=== PATIENT | female | born 1990 | race Caucasian/White ===

== ENCOUNTER 2018-06-28 02:54 | Emergency (ER) | payer OTHER ==
[2018-06-28] MEDS: SOD CHLORIDE 0.9% 1,000 ML IV (07:13)
[2018-06-28] MEDS: LIDOCAINE/MYLANTA 40 ML BTL PO (07:13)
[2018-06-28] MEDS: FAMOTIDINE 20 MG TAB PO (07:13)
[2018-06-28] MEDS: METOCLOPRAMIDE 10 MG INJ IV (07:13)
[2018-06-28 07:40] LABS: ADD MAN DIFF? NO
[2018-06-28 07:44] LABS: WHITE BLOOD COUNT 9.4 10^3/ul (4.8-10.8)
[2018-06-28 07:44] LABS: BASOPHILS % 0.2 % (0.0-2.0); EOSINOPHILS # 0.2 10^3/ul (0.0-0.5); EOSINOPHILS % 1.6 % (0.0-7.0); HEMOGLOBIN 12.5 g/dl (12.0-16.0); LYMPHOCYTES # 2.2 10^3/ul (0.8-2.9); LYMPHOCYTES % 23.6 % (15.0-51.0); MEAN CORPUSCULAR HGB CONC 32.9 g/dl (32.0-37.0); MEAN CORPUSCULAR VOLUME 85.2 fl (82.0-101.0); MEAN PLATELET VOLUME 9.6 fl (7.4-10.4); MONOCYTE # 0.5 10^3/ul (0.3-0.9); MONOCYTES % 4.9 % (0.0-11.0); NEUTROPHIL # 6.5 10^3/ul (1.6-7.5); NEUTROPHILS % 69.4 % (39.0-77.0); PLATELET COUNT 231 10^3/UL (140-415); RED BLOOD COUNT 4.46 10^6/ul (4.20-5.40); RED CELL DISTRIBUTION WIDTH 13.5 % (11.5-14.5)
[2018-06-28 08:02] LABS: ALANINE AMINOTRANSFERASE 24 IU/L (13-69); ALBUMIN 4.3 g/dl (3.3-4.9); ALBUMIN/GLOBULIN RATIO 1.19; ALKALINE PHOSPHATASE 62 IU/L (42-121); ANION GAP 17 (8-16); ASPARTATE AMINO TRANSFERASE 23 IU/L (15-46); BILIRUBIN,INDIRECT 0.1 mg/dl (0-1.1); BILIRUBIN,TOTAL 0.1 mg/dl (0.2-1.3); BLOOD UREA NITROGEN 7 mg/dl (7-20); CALCIUM 9.5 mg/dl (8.4-10.2); CARBON DIOXIDE 25 mmol/L (21-31); CHLORIDE 105 mmol/L (97-110); CREATININE 0.44 mg/dl (0.44-1.00); GLUCOSE 89 mg/dl (70-220); LIPASE 39 U/L (23-300); POTASSIUM 3.7 mmol/L (3.5-5.1); SODIUM 143 mmol/L (135-144); TOTAL PROTEIN 7.9 g/dl (6.1-8.1)
[2018-06-28 08:07] LABS: INR 0.95; PROTIME 12.8 Sec (11.9-14.9)
[2018-06-28 08:08] LABS: PARTIAL THROMBOPLASTIN TIME 27.7 Sec (25.0-35.0)
[2018-06-28 08:25] LABS: ADD UMIC YES; UR ASCORBIC ACID NEGATIVE (NEGATIVE); UR BACTERIA FEW /HPF (NONE SEEN); UR BILIRUBIN (Dip) NEGATIVE (NEGATIVE); UR BLOOD (Dip) 1+ mg/dL (NEGATIVE); UR CLARITY CLOUDY (CLEAR); UR COLOR AMBER (YELLOW); UR GLUCOSE (Dip) NEGATIVE (NEGATIVE); UR KETONES (Dip) NEGATIVE (NEGATIVE); UR LEUKOCYTE ESTERASE (Dip) 3+ Leu/ul (NEGATIVE); UR MUCUS MANY /HPF (NONE SEEN); UR NITRITE (Dip) NEGATIVE (NEGATIVE); UR RBC 33 /HPF (0-5); UR SQUAMOUS EPITHELIAL CELL MANY /HPF (FEW); UR TOTAL PROTEIN (Dip) 1+ mg/dl (NEGATIVE); UR UROBILINOGEN (Dip) NEGATIVE (NEGATIVE); UR WBC > 182 /HPF (0-5)
== END 2018-06-28 09:04 | disposition home or self-care (01) ==
LOC: FTE 02:54
DX: O23.41 Unspecified infection of urinary tract in pregnancy, first trimester (principal); R10.2 Pelvic and perineal pain; Z3A.12 12 weeks gestation of pregnancy
CPT/HCPCS: 76705; 76801; 80053; 81001; 83690; 84702; 85025; 85610; 85730; 86900; 86901; 96361; 96374; 99285-25

== ENCOUNTER 2018-10-18 18:17 | Outpatient (CLI) | payer OTHER ==
[2018-10-18 19:48] LABS: ADD UMIC YES; UR ASCORBIC ACID NEGATIVE (NEGATIVE); UR BILIRUBIN (Dip) NEGATIVE (NEGATIVE); UR BLOOD (Dip) NEGATIVE (NEGATIVE); UR CLARITY CLOUDY (CLEAR); UR COLOR YELLOW (YELLOW); UR GLUCOSE (Dip) NEGATIVE (NEGATIVE); UR KETONES (Dip) NEGATIVE (NEGATIVE); UR LEUKOCYTE ESTERASE (Dip) NEGATIVE Leu/ul (NEGATIVE); UR NITRITE (Dip) NEGATIVE (NEGATIVE); UR RBC 1 /HPF (0-5); UR SPECIFIC GRAVITY (Dip) 1.016 (1.003-1.030); UR SQUAMOUS EPITHELIAL CELL FEW /HPF (FEW); UR TOTAL PROTEIN (Dip) NEGATIVE (NEGATIVE); UR UROBILINOGEN (Dip) NEGATIVE (NEGATIVE); UR WBC 0 /HPF (0-5)
[2018-10-18] MEDS: ACETAMINOPHEN 325 MG TAB PO (20:46)
== END 2018-10-18 22:22 | disposition home or self-care (01) ==
LOC: OBT 18:17 → L-D 18:18 → OBT 22:22
DX: O26.893 Other specified pregnancy related conditions, third trimester (principal); Z3A.28 28 weeks gestation of pregnancy
CPT/HCPCS: 76815; 81001

== ENCOUNTER 2018-11-26 13:33 | Outpatient (CLI) | payer OTHER ==
[2018-11-26] MEDS: LIDOCAINE/MYLANTA 40 ML BTL PO (14:37)
== END 2018-11-26 15:44 | disposition home or self-care (01) ==
LOC: OBT 13:33 → L-D 13:33 → OBT 15:44
DX: O26.893 Other specified pregnancy related conditions, third trimester (principal); Z3A.28 28 weeks gestation of pregnancy; R10.2 Pelvic and perineal pain
CPT/HCPCS: 76818

== ENCOUNTER 2018-12-30 00:10 | Outpatient (CLI) | payer OTHER ==
[2018-12-30 01:13] LABS: ADD UMIC NO; UR ASCORBIC ACID NEGATIVE (NEGATIVE); UR BACTERIA FEW /HPF (NONE SEEN); UR BILIRUBIN (Dip) NEGATIVE (NEGATIVE); UR BLOOD (Dip) NEGATIVE (NEGATIVE); UR CLARITY SLIGHTLY CLOUDY (CLEAR); UR COLOR YELLOW (YELLOW); UR GLUCOSE (Dip) NEGATIVE (NEGATIVE); UR KETONES (Dip) NEGATIVE (NEGATIVE); UR LEUKOCYTE ESTERASE (Dip) NEGATIVE Leu/ul (NEGATIVE); UR MUCUS FEW /HPF (NONE SEEN); UR NITRITE (Dip) NEGATIVE (NEGATIVE); UR RBC 0 /HPF (0-5); UR SPECIFIC GRAVITY (Dip) 1.009 (1.003-1.030); UR SQUAMOUS EPITHELIAL CELL FEW /HPF (FEW); UR TOTAL PROTEIN (Dip) NEGATIVE (NEGATIVE); UR UROBILINOGEN (Dip) NEGATIVE (NEGATIVE); UR WBC 2 /HPF (0-5)
[2018-12-30] MEDS: ACETAMINOPHEN 500 MG TAB PO (01:34)
== END 2018-12-30 02:15 | disposition home or self-care (01) ==
LOC: OBT 00:10 → L-D 00:10 → OBT 02:15
DX: O26.893 Other specified pregnancy related conditions, third trimester (principal); R10.2 Pelvic and perineal pain; Z3A.39 39 weeks gestation of pregnancy
CPT/HCPCS: 76818; 81001; 81003; 87086

== ENCOUNTER 2018-12-31 05:10 | Inpatient (IN) | payer OTHER ==
[2018-12-31] MEDS ORDERED: OXYTOCIN 30 UNITS/LR 500 ML IV ×3 (05:30→10:00)
[2018-12-31] MEDS ORDERED: CARBOPROST 250 MCG INJ IM ×2 (05:30→10:00)
[2018-12-31] MEDS ORDERED: MISOPROSTOL 200 MCG TAB PR ×2 (05:30→10:00)
[2018-12-31] MEDS ORDERED: METHYLERGONOVINE 0.2 MG INJ IM ×2 (05:30→10:00)
[2018-12-31] MEDS ORDERED: CEFAZOLIN 2 GM/50 ML (PMX) 50 ML IVPB (05:30)
[2018-12-31] MEDS: LACTATED RINGER'S 1,000 ML IV ×2 (05:33→07:58)
[2018-12-31 06:02] LABS: ADD MAN DIFF? NO
[2018-12-31 06:13] LABS: WHITE BLOOD COUNT 10.4 10^3/ul (4.8-10.8)
[2018-12-31 06:13] LABS: BASOPHIL # 0.1 10^3/ul (0.0-0.1); BASOPHILS % 0.5 % (0.0-2.0); EOSINOPHILS # 0.1 10^3/ul (0.0-0.5); EOSINOPHILS % 1.3 % (0.0-7.0); HEMATOCRIT 32.5 % (37.0-47.0); HEMOGLOBIN 10.5 g/dl (12.0-16.0); LYMPHOCYTES # 2.6 10^3/ul (0.8-2.9); LYMPHOCYTES % 25.2 % (15.0-51.0); MEAN CORPUSCULAR HGB CONC 32.3 g/dl (32.0-37.0); MEAN CORPUSCULAR VOLUME 80.4 fl (82.0-101.0); MEAN PLATELET VOLUME 9.6 fl (7.4-10.4); MONOCYTE # 0.8 10^3/ul (0.3-0.9); MONOCYTES % 7.3 % (0.0-11.0); NEUTROPHIL # 6.7 10^3/ul (1.6-7.5); NEUTROPHILS % 64.5 % (39.0-77.0); PLATELET COUNT 239 10^3/UL (140-415); RED BLOOD COUNT 4.04 10^6/ul (4.20-5.40); RED CELL DISTRIBUTION WIDTH 14.8 % (11.5-14.5)
[2018-12-31 06:30] LABS: INR 1.02; PROTIME 13.5 Sec (11.9-14.9); PT RATIO 1.1
[2018-12-31 06:31] LABS: PARTIAL THROMBOPLASTIN TIME 28.2 Sec (23.0-35.0)
[2018-12-31] MEDS ORDERED: OXYTOCIN 30 UNITS/LR 500 ML BAG IV (07:00)
[2018-12-31 07:13] LABS: HEPATITIS B SURFACE ANTIGEN NEGATIVE (NEGATIVE)
[2018-12-31] MEDS: CITRIC ACID/NA CITRATE 30 ML CUP PO (08:03)
[2018-12-31] MEDS: ONDANSETRON 4 MG INJ IV ×3 (08:03→22:18)
[2018-12-31] MEDS ORDERED: PHENYLephrine (100 MCG/ML) 10ML SYG (08:29)
[2018-12-31] MEDS ORDERED: OXYTOCIN 10 UNIT INJ (08:30)
[2018-12-31] MEDS ORDERED: morphine SULFATE/PF (10 MG/10 ML) INJ (08:30)
[2018-12-31] MEDS ORDERED: DEXAMETHASONE 4 MG/ML 1 ML INJ (09:18)
[2018-12-31] MEDS ORDERED: KETOROLAC 30 MG INJ (09:18)
[2018-12-31] MEDS ORDERED: METOCLOPRAMIDE 10 MG INJ (09:18)
[2018-12-31] MEDS ORDERED: NALBUPHINE HCL (10 MG/1 ML) INJ IV (09:30)
[2018-12-31] MEDS ORDERED: ACETAMINOPHEN 500 MG TAB PO (09:30)
[2018-12-31] MEDS ORDERED: HYDROmorphONE 1 MG/5 ML IV SYRINGE IV ×2 (09:30)
[2018-12-31] MEDS ORDERED: MEPERIDINE 25 MG INJ IV (09:30)
[2018-12-31] MEDS ORDERED: EPHEDrine SULFATE 50 MG/5 ML SYG IV (09:30)
[2018-12-31] MEDS ORDERED: NALOXONE (0.4 MG/ML) INJ IV (09:30)
[2018-12-31] MEDS ORDERED: METOCLOPRAMIDE 10 MG INJ IV (09:30)
[2018-12-31] MEDS ORDERED: HYDROmorphONE 0.5 MG/0.5 ML SYG IV ×2 (09:30)
[2018-12-31] MEDS ORDERED: FENTAnyl 50 MCG/ML VIAL IV ×2 (09:30)
[2018-12-31] MEDS ORDERED: ONDANSETRON 4 MG INJ IV (09:30)
[2018-12-31] MEDS ORDERED: OXYCODONE/ACETAMINOPHEN (5/325) TAB PO (09:30)
[2018-12-31] MEDS: DEXTROSE 5%-LR 1,000 ML IV ×2 (09:33→17:33)
[2018-12-31] MEDS ORDERED: METHYLERGONOVINE 0.2 MG TAB PO (10:00)
[2018-12-31] MEDS ORDERED: morphine 4 MG/ML VIAL IV ×2 (10:00)
[2018-12-31] MEDS ORDERED: LANOLIN HPA 1 PKT TOP (10:00)
[2018-12-31] MEDS: OXYTOCIN 30 UNITS/LR 500 ML IV ×2 (10:22→17:40)
[2018-12-31] MEDS: DIPHENHYDRAMINE 50 MG INJ IV ×2 (10:54→20:41)
[2018-12-31] MEDS: IBUPROFEN 800 MG TAB PO ×2 (14:00→22:00)
[2018-12-31] MEDS: SENNA/DOCUSATE NA (8.6MG/50MG) TAB PO (21:00)
[2018-12-31 21:09] LABS: RAPID PLASMA REAGIN NONREACTIVE (NR)
[2019-01-01] MEDS: DEXTROSE 5%-LR 1,000 ML IV ×2 (03:25→09:33)
[2019-01-01] MEDS: KETOROLAC 30 MG INJ IV (04:13)
[2019-01-01] MEDS: IBUPROFEN 800 MG TAB PO ×3 (06:00→21:39)
[2019-01-01] MEDS: SENNA/DOCUSATE NA (8.6MG/50MG) TAB PO ×2 (08:25→20:59)
[2019-01-01] MEDS: HYDROCODONE/APAP (5/325) TAB PO ×2 (08:26→15:59)
[2019-01-01 08:51] LABS: ADD MAN DIFF? NO
[2019-01-01 08:56] LABS: WHITE BLOOD COUNT 11.3 10^3/ul (4.8-10.8)
[2019-01-01 08:56] LABS: BASOPHILS % 0.4 % (0.0-2.0); EOSINOPHILS # 0.1 10^3/ul (0.0-0.5); EOSINOPHILS % 0.8 % (0.0-7.0); HEMATOCRIT 28.5 % (37.0-47.0); LYMPHOCYTES # 2.8 10^3/ul (0.8-2.9); LYMPHOCYTES % 24.4 % (15.0-51.0); MEAN CORPUSCULAR HEMOGLOBIN 25.7 pg (29.0-33.0); MEAN CORPUSCULAR HGB CONC 31.6 g/dl (32.0-37.0); MEAN CORPUSCULAR VOLUME 81.4 fl (82.0-101.0); MEAN PLATELET VOLUME 9.4 fl (7.4-10.4); MONOCYTE # 0.8 10^3/ul (0.3-0.9); MONOCYTES % 7.2 % (0.0-11.0); NEUTROPHIL # 7.5 10^3/ul (1.6-7.5); PLATELET COUNT 214 10^3/UL (140-415); RED CELL DISTRIBUTION WIDTH 14.9 % (11.5-14.5)
[2019-01-01] MEDS ORDERED: DIPHTH/TET/ACEL PERTUSS (ADULT) 0.5 ML VIAL IM* (11:00)
[2019-01-01] MEDS ORDERED: HYDROCODONE/APAP (5/325) TAB NGT (11:00)
[2019-01-01] MEDS: HYDROCODONE/APAP (5/325) TAB GTB ×2 (13:18→21:39)
[2019-01-02] MEDS: HYDROCODONE/APAP (5/325) TAB GTB ×3 (05:56→22:16)
[2019-01-02] MEDS: IBUPROFEN 800 MG TAB PO ×3 (05:56→22:15)
[2019-01-02] MEDS: SENNA/DOCUSATE NA (8.6MG/50MG) TAB PO ×2 (09:00→20:13)
[2019-01-02] MEDS: HYDROCODONE/APAP (5/325) TAB PO ×3 (11:06→20:14)
[2019-01-03] MEDS: IBUPROFEN 800 MG TAB PO ×2 (06:13→14:58)
[2019-01-03] MEDS: HYDROCODONE/APAP (5/325) TAB GTB ×2 (06:14→14:58)
[2019-01-03] MEDS: DIPHTH/TET/ACEL PERTUSS (ADULT) 0.5 ML VIAL IM* (09:00)
[2019-01-03] MEDS: MEASLES,MUMPS,RUBELLA VACCINE INJ SC* (09:00)
[2019-01-03] MEDS: SENNA/DOCUSATE NA (8.6MG/50MG) TAB PO (09:52)
== END 2019-01-03 15:59 | disposition home or self-care (01) | DRG 788 ==
LOC: L-D 05:10 → PP1 12:46
PROVIDERS: Obstetrics & Gynecology
PROC: 10D00Z1 Extraction of Products of Conception, Low, Open Approach (ICD-10-PCS; principal; 2018-12-31 07:30)
DX: O34.211 Maternal care for low transverse scar from previous cesarean delivery (principal); Z3A.39 39 weeks gestation of pregnancy; Z37.0 Single live birth
CPT/HCPCS: 85025; 85610; 85730; 86592; 86850; 86900; 86901; 87340; 99464